=== PATIENT | male | born 1985 | race Caucasian/White ===

== ENCOUNTER 2022-12-19 11:57 | Emergency (ER) | payer MEDICARE, MEDICAID ==
[~2022-12-19] VITALS: Ht 167.6 cm; Wt 75.0 kg
[2022-12-19 12:49] LABS: BASOPHILS % 0.7 % (0.0-2.0); EOSINOPHILS % 0.5 % (0.0-5.0); HEMATOCRIT. 41.3 % (42.0-52.0); HEMOGLOBIN. 14.3 g/dL (14.0-18.0); LYMPHOCYTES % 21.1 % (20.0-50.0); MEAN CORPUSCULAR HEMOGLOBIN 32.7 pg (28.0-32.0); MEAN CORPUSCULAR VOLUME 94.6 fL (80.0-94.0); MEAN PLATELET VOLUME 8.3 fl (7.4-10.4); MONOCYTES % 10.5 % (2.0-8.0); NEUTROPHILS % 67.2 % (40.0-76.0); PLATELET 208 x1000/uL (130-400); RED BLOOD CELL COUNT 4.36 mill/uL (4.7-6.1); RED CELL DISTRIBUTION WIDTH 13.2 % (11.6-14.6)
[2022-12-19 12:54] LABS: CHLORIDE 109 mEq/L (98-107)
[2022-12-19 13:02] LABS: ETHANOL BLOOD < 10 mg/dL (-10)
[2022-12-19 13:27] VITALS: BP 112/70
== END 2022-12-19 13:30 | disposition home or self-care (01) ==
LOC: ER 11:57
DX: T65.91XA Toxic effect of unspecified substance, accidental (unintentional), initial encounter (principal); Z86.59 Personal history of other mental and behavioral disorders; Y92.9 Unspecified place or not applicable
CPT/HCPCS: 36415; 71045; 80053; 80320; 82140; 85025; 99283; G0480